=== PATIENT | male | born 1990 | race Hispanic/Latino ===

== ENCOUNTER 2018-10-03 05:17 | Emergency (ER) | payer MEDICAID, OTHER ==
[2018-10-03] MEDS ORDERED: LIDOCAINE HCL 2% VISCOUS 15 ML UDCUP ONE (05:59)
[2018-10-03] MEDS ORDERED: MAG HYDROX/AL HYDROX/SIMETH ES 30 ML SUSP UDCUP ONE (05:59)
[2018-10-03] MEDS ORDERED: PREDNISOLONE 15 MG/5 ML ONE (05:59)
[2018-10-03] MEDS ORDERED: ONDANSETRON ODT 4 MG TAB ONE (06:00)
== END 2018-10-03 06:28 | disposition home or self-care (01) ==
LOC: EDH 05:17
DX: J02.9 Acute pharyngitis, unspecified (principal); B34.9 Viral infection, unspecified; F41.9 Anxiety disorder, unspecified; Z72.0 Tobacco use